=== PATIENT | female | born 1995 | race Caucasian/White ===

== ENCOUNTER 2016-08-15 23:56 | Emergency (ER) | payer BC ==
[~2016-08-15] VITALS: Ht 162.6 cm; Wt 78.5 kg
[2016-08-16] MEDS ORDERED: LEXAPRO 10 MG T10 MG PO (00:03)
[2016-08-16] MEDS ORDERED: LEXAPRO 10 MG T10 M1 PO (00:03)
[2016-08-16] MEDS ORDERED: CYCLOBENZAPRINE5 MG PO (01:47)
[2016-08-16] MEDS ORDERED: IBUPROFEN 600600 M1 PO (01:47)
[2016-08-16] MEDS ORDERED: TESSALON PERLE100 MG PO (01:47)
[2016-08-16 01:50] VITALS: BP 116/59
== END 2016-08-16 01:50 | disposition home or self-care (01) ==
LOC: ER 23:56
DX: R07.81 Pleurodynia (principal); Z88.8 Allergy status to other drugs, medicaments and biological substances

== ENCOUNTER 2017-03-22 18:31 | Emergency (ER) | payer BC ==
[~2017-03-22] VITALS: Ht 165.1 cm; Wt 79.8 kg
[~2017-03-22 18:31] MED LIST: CYCLOBENZAPRINE5 MG PO; IBUPROFEN 600600 M1 PO; LEXAPRO 10 MG T10 M1 PO; LEXAPRO 10 MG T10 MG PO; TESSALON PERLE100 MG PO
[2017-03-22] MEDS ORDERED: EFFEXOR XR75 MG PO (19:34)
[2017-03-22 19:57] LABS: ABSOLUTE NEUTROPHILS 5.2 thou/uL (1.4-8.2); BASOPHILS 0.3 % (0.0-2.0); EOSINOPHILS 1.7 % (0.0-3.0); HEMATOCRIT 36.1 % (37.0-47.0); HEMOGLOBIN 12.4 gm/dL (12.0-15.0); LYMPHOCYTES 26.9 % (24.0-44.0); MCH 28.3 pg (26.0-34.0); MCHC 34.3 g/dL (28.0-37.0); MCV 82.7 fL (80.0-100.0); MONOCYTES 5.6 % (1.0-8.0); PLATELET COUNT 200 thou/uL (150-400); POLYS 65.5 % (36.0-66.0); RBC 4.37 mil/uL (4.20-5.00); RDW 13.4 % (10.5-14.5); WBC 7.9 thou/uL (4.0-11.0)
[2017-03-22 19:58] LABS: MANUAL DIFF NO
[2017-03-22 20:05] LABS: CREATININE 0.6 mg/dL (0.6-1.0); POTASSIUM 3.7 mmol/L (3.5-5.1)
[2017-03-22 20:11] LABS: TOTAL BILIRUBIN 0.4 mg/dL (<0.1-1.0); TOTAL PROTEIN 7.2 g/dL (6.4-8.2)
[2017-03-22] MEDS ORDERED: PEPCID20 MG PO (21:07)
[2017-03-22 21:37] VITALS: BP 112/68
== END 2017-03-22 21:38 | disposition home or self-care (01) ==
LOC: ER 18:31
PROVIDERS: Emergency Medicine
DX: R10.13 Epigastric pain (principal); F10.99 Alcohol use, unspecified with unspecified alcohol-induced disorder; Z88.8 Allergy status to other drugs, medicaments and biological substances

== ENCOUNTER 2018-07-25 10:01 | Emergency (ER) | payer BC, OTHER ==
[~2018-07-25] VITALS: Ht 162.6 cm; Wt 77.1 kg
[~2018-07-25 10:01] MED LIST changes: +EFFEXOR XR75 MG PO; +PEPCID20 MG PO
[2018-07-25 10:25] LABS: URINE CLARITY CLEAR; URINE COLOR YELLOW
[2018-07-25 10:26] LABS: URINE BILIRUBIN NEGATIVE (Negative); URINE BLOOD NEGATIVE (Negative); URINE GLUCOSE-RANDOM* NEGATIVE (Negative); URINE KETONES NEGATIVE (Negative); URINE LEUKOCYTES-REFLEX NEGATIVE (Negative); URINE NITRITE-REFLEX NEGATIVE (Negative); URINE PROTEIN (DIPSTICK) NEGATIVE (Negative); URINE UROBILINOGEN 0.2 E.U./dl (0.2-1.0)
[2018-07-25 10:45] LABS: BASOPHILS 0.5 % (0.0-2.0); HEMATOCRIT 37.5 % (37.0-47.0); HEMOGLOBIN 12.8 gm/dL (12.0-15.0); LYMPHOCYTES 21.4 % (24.0-44.0); MCH 29.5 pg (26.0-34.0); MCHC 34.1 g/dL (28.0-37.0); MCV 86.6 fL (80.0-100.0); MONOCYTES 5.2 % (1.0-8.0); PLATELET COUNT 179 thou/uL (150-400); POLYS 68.9 % (36.0-66.0); RBC 4.33 mil/uL (4.20-5.00); RDW 13.4 % (10.5-14.5); WBC 5.8 thou/uL (4.0-11.0)
[2018-07-25 10:53] LABS: CREATININE 0.7 mg/dL (0.6-1.0); POTASSIUM 4.1 mmol/L (3.5-5.1)
[2018-07-25 10:59] LABS: TOTAL BILIRUBIN 0.4 mg/dL (<0.1-1.0); TOTAL PROTEIN 7.2 g/dL (6.4-8.2)
[2018-07-25] MEDS ORDERED: RISPERDAL0.5 MG PO (11:31)
[2018-07-25] MEDS ORDERED: CYMBALTA60 MG PO (11:31)
[2018-07-25] MEDS ORDERED: MOBIC7.5 MG PO (12:23)
[2018-07-25 14:02] VITALS: BP 111/64
== END 2018-07-25 14:03 | disposition home or self-care (01) ==
LOC: ER 10:01
PROVIDERS: Emergency Medicine; Nurse Practitioner Family
DX: N83.202 Unspecified ovarian cyst, left side (principal); Z88.8 Allergy status to other drugs, medicaments and biological substances

== ENCOUNTER → 2018-09-05 | Outpatient (CLI) | payer BC, OTHER ==
[~2018-09-05] MED LIST changes: +CYMBALTA60 MG PO; +MOBIC7.5 MG PO; +RISPERDAL0.5 MG PO
== END ==
LOC: ULTRA 10:17
DX: N83.201 Unspecified ovarian cyst, right side (principal); N83.202 Unspecified ovarian cyst, left side

== ENCOUNTER 2019-05-13 11:59 | Emergency (ER) | payer OTHER ==
[~2019-05-13] VITALS: Ht 162.6 cm; Wt 73.0 kg
[2019-05-13 12:19] LABS: URINE BILIRUBIN NEGATIVE (Negative); URINE BLOOD NEGATIVE (Negative); URINE CLARITY CLEAR; URINE COLOR YELLOW; URINE GLUCOSE-RANDOM* NEGATIVE (Negative); URINE KETONES NEGATIVE (Negative); URINE LEUKOCYTES-REFLEX NEGATIVE (Negative); URINE NITRITE-REFLEX NEGATIVE (Negative); URINE PROTEIN (DIPSTICK) NEGATIVE (Negative); URINE SPECIFIC GRAVITY >= 1.030 (1.005-1.035); URINE UROBILINOGEN 0.2 E.U./dl (0.2-1.0)
[2019-05-13 13:02] LABS: ABSOLUTE NEUTROPHILS 4.2 thou/uL (1.4-8.2); BASOPHILS 0.3 % (0.0-2.0); EOSINOPHILS 2.1 % (0.0-3.0); HEMATOCRIT 36.4 % (37.0-47.0); LYMPHOCYTES 15.7 % (24.0-44.0); MCH 28.8 pg (26.0-34.0); MCV 87.3 fL (80.0-100.0); MONOCYTES 5.9 % (1.0-8.0); PLATELET COUNT 197 thou/uL (150-400); RBC 4.17 mil/uL (4.20-5.00); RDW 12.9 % (10.5-14.5); WBC 5.6 thou/uL (4.0-11.0)
[2019-05-13 13:10] LABS: CALCIUM 8.9 mg/dL (8.5-10.1); CREATININE 0.6 mg/dL (0.6-1.0); POTASSIUM 3.7 mmol/L (3.5-5.1)
[2019-05-13 13:16] LABS: ALBUMIN 3.9 g/dL (3.4-5.0); TOTAL BILIRUBIN 0.5 mg/dL (<0.1-1.0); TOTAL PROTEIN 7.1 g/dL (6.4-8.2)
[2019-05-13 13:24] LABS: PLATELET ESTIMATE NORMAL
[2019-05-13] MEDS ORDERED: ZOFRAN ODT4 MG DISSOLVE (13:58)
[2019-05-13] MEDS ORDERED: PEPCID20 MG PO (13:58)
[2019-05-13 14:29] VITALS: BP 112/74
== END 2019-05-13 14:36 | disposition home or self-care (01) ==
LOC: ER 11:59
PROVIDERS: Physician Assistant
DX: R11.2 Nausea with vomiting, unspecified (principal); R10.13 Epigastric pain; Z90.49 Acquired absence of other specified parts of digestive tract; Z88.8 Allergy status to other drugs, medicaments and biological substances

== ENCOUNTER 2020-07-29 09:24 | Emergency (ER) | payer BC, OTHER ==
[~2020-07-29] VITALS: Ht 162.6 cm; Wt 70.3 kg
[~2020-07-29 09:24] MED LIST changes: +ZOFRAN ODT4 MG DISSOLVE
[2020-07-29 12:02] VITALS: BP 128/69
== END 2020-07-29 12:02 | disposition home or self-care (01) ==
LOC: ER 09:24
DX: S49.92XA Unspecified injury of left shoulder and upper arm, initial encounter (principal); M54.9 Dorsalgia, unspecified; M25.552 Pain in left hip; Z90.49 Acquired absence of other specified parts of digestive tract; Z88.8 Allergy status to other drugs, medicaments and biological substances; V89.2XXA Person injured in unspecified motor-vehicle accident, traffic, initial encounter; Y93.I9 Activity, other involving external motion; Y92.488 Other paved roadways as the place of occurrence of the external cause; Y99.8 Other external cause status

== ENCOUNTER → 2020-08-26 | Outpatient (CLI) | payer BC, OTHER | LOC: RAD 11:10 | PROVIDERS: ATTEND Nurse Practitioner | DX: M25.512 Pain in left shoulder (principal) ==